=== PATIENT | male | born 1995 | race Caucasian/White ===

== ENCOUNTER 2018-09-11 17:52 | Emergency (ER) | payer OTHER ==
[2018-09-11] MEDS ORDERED: OXYCODONE/APAP 5/325 TAB PO ONE (18:40)
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
[2018-09-11 20:17] VITALS: BP 158/87
== END 2018-09-11 20:16 | disposition home or self-care (01) ==
DX: S42.021A Displaced fracture of shaft of right clavicle, initial encounter for closed fracture (principal); V19.60XA Unspecified pedal cyclist injured in collision with unspecified motor vehicles in traffic accident, initial encounter; Y93.55 Activity, bike riding; Y92.410 Unspecified street and highway as the place of occurrence of the external cause; Y99.8 Other external cause status